=== PATIENT | female | born 1990 | race Caucasian/White ===

== ENCOUNTER 2020-04-13 07:02 | Inpatient (IN) | payer MEDICAID ==
[~2020-04-13] VITALS: Ht 157.5 cm; Wt 81.6 kg
[2020-04-13] MEDS ORDERED: LIDOCAINE HCL 2%/EPINEPHRINE 1:100,000 20 ML VIAL INFIL ONE (08:30)
[2020-04-13] MEDS ORDERED: ROPIVACAINE HCL/PF EPIDURAL 200 ML EPI SCH (08:30)
[2020-04-13] MEDS ORDERED: NALOXONE HCL 0.4 MG/ML 1ML VIAL IM PRN (09:30)
[2020-04-13] MEDS ORDERED: LIDOCAINE HCL 1% 20ML VIAL (Pyxis) INJ INFIL SCH (09:30)
[2020-04-13] MEDS ORDERED: DEXT 5%/LR + PITOCIN 20UNITS/L 1,000 ML IV SCH (09:30)
[2020-04-13] MEDS ORDERED: MISOPROSTOL 100MCG TABLET VG SCH (09:30)
[2020-04-13] MEDS ORDERED: CARBOPROST TROMETHAMINE 250 MCG/ML AMPUL IM PRN (09:30)
[2020-04-13] MEDS ORDERED: METHYLERGONOVINE MALEATE 0.2 MG/ML IM PRN (09:30)
[2020-04-13] MEDS ORDERED: DEXT 5%/LACTATED RINGERS 1,000 ML IV SCH (09:30)
[2020-04-13] MEDS ORDERED: LACTATED RINGERS 1,000 ML IV SCH (09:30)
[2020-04-13 09:46] LABS: BASOPHILS % 0.4 % (0.0-2.0); EOSINOPHILS % 6.6 % (0.0-5.0); HEMATOCRIT. 33.4 % (36.0-48.0); HEMOGLOBIN. 11.1 g/dL (12.0-16.0); LYMPHOCYTES % 13.7 % (20.0-50.0); MEAN CORPUSCULAR VOLUME 86.9 fL (81.0-99.0); MEAN PLATELET VOLUME 9.1 fl (7.4-10.4); MONOCYTES % 5.8 % (2.0-8.0); NEUTROPHILS % 73.5 % (40.0-76.0); PLATELET 175 x1000/uL (130-400); RED BLOOD CELL COUNT 3.84 mill/uL (4.2-5.4); RED CELL DISTRIBUTION WIDTH 14.6 % (11.6-14.6)
[2020-04-13 09:58] LABS: INR 0.9; PARTIAL THROMBOPLASTIN TIME 27.1 sec (23.4-31.0); PROTHROMBIN TIME 9.6 sec (9.6-11.0)
[2020-04-13 10:00] LABS: CLARITY URINE CLEAR (CLEAR); COLOR URINE YELLOW (YELLOW); KETONES URINE NEGATIVE (NEGATIVE); LEUKOCYTE ESTERASE URINE 2+ (NEGATIVE); NITRITE URINE NEGATIVE (NEGATIVE); OCCULT BLOOD URINE 2+ (NEGATIVE); PH URINE 6.5 (4.5-8.0); PROTEIN URINE NEGATIVE (NEGATIVE); SPECIFIC GRAVITY URINE 1.006 (1.005-1.030); UROBILINOGEN URINE 0.2 E.U./dL (0.2-1.0)
[2020-04-13 10:57] LABS: *AMPHETAMINES SCREEN URINE NEGATIVE (NEGATIVE)
[2020-04-13 10:58] LABS: *BARBITURATES SCREEN URINE NEGATIVE (NEGATIVE); *COCAINE SCREEN URINE NEGATIVE (NEGATIVE); OPIATES URINE SCREEN NEGATIVE (NEGATIVE); PHENCYCLIDINE URINE SCREEN NEGATIVE (NEGATIVE)
[2020-04-13 10:59] LABS: *BENZODIAZEPINES SCREEN URINE NEGATIVE (NEGATIVE); CANNABINOID URINE SCREEN NEGATIVE (NEGATIVE); METHADONE URINE SCREEN NEGATIVE (NEGATIVE)
[2020-04-13 12:51] LABS: HEPATITIS B SURFACE ANTIGEN NEGATIVE
[2020-04-13] MEDS ORDERED: BUTORPHANOL TARTRATE 2 MG/ML VIAL IV PRN (14:07)
[2020-04-13] MEDS ORDERED: ACETAMINOPHEN 325MG TABLET PO PRN (19:15)
[2020-04-13] MEDS ORDERED: AMPICILLIN 2,000 MG in SODIUM CHLORIDE 0.9% 100 ML IV SCH (20:00)
[2020-04-14] MEDS ORDERED: BISACODYL 10MG SUPP PR PRN
[2020-04-14] MEDS ORDERED: DEXT 5%/LR + PITOCIN 20UNITS/L 1,000 ML IV SCH
[2020-04-14] MEDS ORDERED: HEMORRHOIDAL SUPP PR PRN
[2020-04-14] MEDS ORDERED: DIPHENHYDRAMINE 25MG CAPSULE PO PRN
[2020-04-14] MEDS ORDERED: IBUPROFEN 400MG TABLET PO PRN
[2020-04-14] MEDS ORDERED: ACETAMINOPHEN WITH CODEINE 300/30MG TABLET PO PRN
[2020-04-14] MEDS ORDERED: GLYCERIN/WITCH HAZEL LEAF MEDICATED PAD TOP PRN
[2020-04-14] MEDS: BENZOCAINE/LANOLIN/ALOE VERA SPRAY TOP PRN ×2 (03:33→03:51)
[2020-04-14] MEDS: LANOLIN OINT 7GM TUBE TOP PRN ×2 (03:33→03:51)
[2020-04-14] MEDS: IBUPROFEN 800MG TABLET PO PRN ×4 (03:34→21:54)
[2020-04-14 06:00] VITALS: BP 125/82
[2020-04-14 06:30] VITALS: BP 122/80
[2020-04-14 06:45] VITALS: BP 125/82
[2020-04-14 08:00] VITALS: BP 97/60
[2020-04-14 08:22] LABS: BASOPHILS % 0.1 % (0.0-2.0); EOSINOPHILS % 0.6 % (0.0-5.0); HEMATOCRIT. 29.5 % (36.0-48.0); HEMOGLOBIN. 9.9 g/dL (12.0-16.0); LYMPHOCYTES % 8.1 % (20.0-50.0); MEAN CORPUSCULAR HEMOGLOBIN 28.8 pg (28.0-32.0); MEAN CORPUSCULAR VOLUME 86.3 fL (81.0-99.0); MEAN PLATELET VOLUME 8.5 fl (7.4-10.4); MONOCYTES % 5.9 % (2.0-8.0); NEUTROPHILS % 85.3 % (40.0-76.0); PLATELET 154 x1000/uL (130-400); RED BLOOD CELL COUNT 3.42 mill/uL (4.2-5.4); RED CELL DISTRIBUTION WIDTH 14.4 % (11.6-14.6)
[2020-04-14] MEDS ORDERED: PRENATAL VIT/FE FUMARATE/FA TABLET PO SCH (09:00)
[2020-04-14] MEDS: FERROUS SULFATE 325MG TABLET PO SCH ×3 (09:13→18:02)
[2020-04-14] MEDS: SIMETHICONE 80MG TABLET CHEW PO SCH ×4 (09:14→21:54)
[2020-04-14] MEDS: MAGNESIUM/ALUMINUM HYDROXIDE/SIMETHICONE 30ML UDC PO SCH ×4 (09:14→21:53)
[2020-04-14] MEDS ORDERED: METHYLERGONOVINE MALEATE 0.2 MG/ML ONE (10:00)
[2020-04-14 16:00] VITALS: BP 96/52
[2020-04-14 20:00] VITALS: BP 108/50
[2020-04-14] MEDS ORDERED: DOCUSATE SODIUM 100MG CAPSULE PO SCH (21:00)
[2020-04-15 04:30] VITALS: BP 99/53
[2020-04-15 06:04] LABS: BASOPHILS % 0.3 % (0.0-2.0); HEMATOCRIT. 24.8 % (36.0-48.0); HEMOGLOBIN. 8.2 g/dL (12.0-16.0); LYMPHOCYTES % 14.8 % (20.0-50.0); MEAN CORPUSCULAR HEMOGLOBIN 28.7 pg (28.0-32.0); MEAN CORPUSCULAR VOLUME 86.8 fL (81.0-99.0); MONOCYTES % 4.6 % (2.0-8.0); NEUTROPHILS % 76.3 % (40.0-76.0); PLATELET 136 x1000/uL (130-400); RED BLOOD CELL COUNT 2.86 mill/uL (4.2-5.4); RED CELL DISTRIBUTION WIDTH 14.3 % (11.6-14.6)
[2020-04-15 08:00] VITALS: BP 100/55
[2020-04-15 09:05] VITALS: BP 99/53
[2020-04-15] MEDS: BENZOCAINE/LANOLIN/ALOE VERA SPRAY TOP PRN (09:05)
[2020-04-15] MEDS: FERROUS SULFATE 325MG TABLET PO SCH (09:05)
[2020-04-15] MEDS: IBUPROFEN 800MG TABLET PO PRN (09:05)
== END 2020-04-15 13:29 | disposition home or self-care (01) | DRG 560 ==
LOC: 8 EST LDRP 07:02 → OBSVTOIN 07:02 → 8 EST LDRP 07:26 → 8EST 04-14 06:11
PROVIDERS: ADMIT Obstetrics & Gynecology; ATTEND Obstetrics & Gynecology
PROC: 10907ZC Drainage of Amniotic Fluid, Therapeutic from Products of Conception, Via Natural or Artificial Opening (ICD-10-PCS; 2020-04-13)
PROC: 3E0R3BZ Introduction of Anesthetic Agent into Spinal Canal, Percutaneous Approach (ICD-10-PCS; 2020-04-13)
PROC: 00HU33Z Insertion of Infusion Device into Spinal Canal, Percutaneous Approach (ICD-10-PCS; 2020-04-13)
PROC: 10E0XZZ Delivery of Products of Conception, External Approach (ICD-10-PCS; principal; 2020-04-14)
PROC: 30233S1 Transfusion of Nonautologous Globulin into Peripheral Vein, Percutaneous Approach (ICD-10-PCS; 2020-04-14)
DX: O80 Encounter for full-term uncomplicated delivery (principal); Z3A.37 37 weeks gestation of pregnancy; Z37.0 Single live birth
CPT/HCPCS: 36415; 76805; 76818; 80305; 81003; 85025; 86592; 86703; 86762; 86850; 86870; 86886; 86900; 87340; 90384; 99281; J0290; J0595; J2210; J2590; J2795; J3490; J7050; J7120; J7121